=== PATIENT | male | born 1995 | race Caucasian/White ===

== ENCOUNTER 2022-09-07 22:38 | Emergency (ER) | payer OTHER ==
--- OUTSIDE RECORDS SUMMARY | 2022-09-07 22:44 | XMS REPORT | Continuity of Care Document ---
:1995 Author Organization [facility] t Address [facility] [place] [address] Care Team Providers Name Role Phone LORRAINE BHAKTA Primary Care Physician Unavailable Pob, Ad[facility] Lab Main Attending Clinician Unavailable Brad Oh MD Attending Clinician BRAD OH Attending Clinician Unavailable LEATHA PRUITT Attending Clinician Unavailable Leatha Pruitt MD Attending Clinician LEATHA PRUITT Admitting Clinician Unavailable Payers Payer Name Policy Type Policy Number Effective Date Expiration Date S ource Problems Condition Condition Condition Status Onset Resolution Last Treating Co mments Source Name Details Category Date Date Treatment Clinician Date 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 5-16 ity of 00:00: [place] 00 Medical Branch Failure to Failure to Disease Active U nivers gain gain 5-16 ity of weight weight 00:00: [place] (0-17) (0-17) 00 Medical Branch Allergies, Adverse Reactions, Alerts Allergy Allergy Status Severity Reaction(s) Onset Inactive Treating Comm ents Source Name Type Date Date Clinician NO KNOWN Drug Active Univers ALLERGIE Class ity of [facility] Social History Social Habit Start Date Stop Date Quantity Comments Source Exposure to 2022-08-10 2022-08-20 Not sure [facility]-CoV-2 00:00:00 05:13:00 [place] [facility] (event) [place] Alcohol intake 2022-08-20 2022-08-20 Current University of 00:00:00 00:00:00 non-drinker of [facility] alcohol (finding) [place] Tobacco use and 2012-02-29 2012-02-29 Smokeless tobacco Un iversity of exposure 00:00:00 00:00:00 non-user [facility] Sex Assigned At [birth year] Universit y of 00:00:00 00:00:00 [facility] Smoking Status Start Date Stop Date Source Never smoked tobacco [facility] Medications Ordered Filled Start Stop Current Ordering Indication Dosage Frequency Signature Comments Components Source Medication Medication Date Date Medication? Clinician (SIG) Name Name metoclopram 2021-10 No 10mg 10 mg, Uni vers fernando HCl 10-20 Slow IV ity of (REGLAN) 13:00: 12:50 Push, [place] injection 00 :00 ONCE, 1 Medical 10 mg dose, On Branch 08/20/22 at 0800, GIL NaCl 0.9% 2021-10 No 1000mL at 999 Uni vers (NS) IV 10-20 mL/hr, ity of infusion 13:00: 13:25 [place] 1,000 mL 00 :00 s, ONCE, 1 Medic al dose, On Branch 08/20/22 at 0800, Routine ondansetron 2021-10 No 4mg 4 mg, Slow Univers (ZOFRAN 10-20 IV Push, ity of (PF)) 12:15: 12:16 ONCE, 1 [place] injection 4 00 :00 dose, On [facility] mg Sat Branch 08/20/22 at 0715, GIL FENTanyl PF 2021-10 No 25ug 25 mcg, Un john (SUBLIMAZE 10-20 Slow IV ity o f (PF)) 12:15: 12:16 Push, [place] injection 00 :00 ONCE, 1 Medical 25 mcg dose, On Branch 08/20/22 at 0715, STAT iopamidol 2021-10- No [id number] 100mL 100 mL, Univers (ISOVUE 10-20 Intravenou ity o f 370-500 mL) 12:15: 11:26 s, ONCE, 1 [place] injection 00 :00 dose, On Medica l 100 mL Sat Branch 08/20/22 at 0715, Routine ondansetron 2021-10 4mg 4 mg, Slow Univers (ZOFRAN 10-20 IV Push, ity of (PF)) 10:30: 10:22 ONCE, 1 [place] injection 4 00 :00 dose, On Medi radha mg Sat Branch 08/20/22 at 0530, GIL NaCl 0.9% 2021-10 1000mL at 999 Uni vers (NS) bolus 10-20 mL/hr, ity of infusion 10:30: 11:47 1,000 mL, [place] 1,000 mL 00 :00 IV Medical Infusion, Branch ONCE, 1 dose, On 08/20/22 at 0530, STAT dexmethylph 2021-10 No 10mg Take 10 mg Univers enidate 10-20 by mouth 2 ity o f (FOCALIN) 05:13: 00:00 (two) [place] 10 mg 01 :00 times Medical tablet daily. 15 Branch mg in AM 10 mg at noom dicyclomine 2021-10 Yes [id number] 20mg Take 1 Univers 20 mg 1-05 tablet by ity of tablet 00:00: mouth [place] 00 every 6 Medical (six) Branch hours as needed for Abdominal pain. ondansetron 2021-10 Yes [id number] 4mg Take 1 Univers (ZOFRAN) 4 1-05 tablet by ity of mg tablet 00:00: mouth [place] 00 every 8 Medical (eight) Branch hours as needed for Nausea and Vomiting (N/V). dicyclomine 2021-10 Yes [id number] 20mg Take 1 Univers 20 mg 1-05 tablet by ity of tablet 00:00: mouth [place] 00 every 6 Medical (six) Branch hours as needed for Abdominal pain. ondansetron 2021-10 Yes [id number] 4mg Take 1 Univers (ZOFRAN) 4 1-05 tablet by ity of mg tablet 00:00: mouth [place] 00 every 8 Medical (eight) Branch hours as needed for Nausea and Vomiting (N/V). Dose No Unknown 06-21 00:00: 00 Dose 0 No Unknown 06-21 00:00: 00 Dose 2-0 No Unknown 06-21 00:00: 00 fluticasone 2-0 No 2mcg/ac propionate 05-16 tuation 50 00:00: mcg/actuati 00 on nasal spray,suspe nsion Dose 2021-0 No 250 Unknown 05-16 00:00: 00 fluticasone 2-0 No 2mcg/ac propionate 05-16 tuation 50 00:00: mcg/actuati 00 on nasal spray,suspe nsion Dose 2021-0 No 250 Unknown 05-16 00:00: 00 fluticasone 2-0 No 2mcg/ac propionate 05-16 tuation 50 00:00: mcg/actuati 00 on nasal spray,suspe nsion Dose 2021-0 No 250 Unknown 05-16 00:00: 00 INHALE 2 2022-0 No PUFFS INTO 7-28 THE LUNGS 00:00: EVERY 6 00 HOURS NEEDED Dose 2022-0 No 250 Unknown 7 00:00: 00 INHALE 2 2022-0 No PUFFS INTO 7-28 THE LUNGS 00:00: EVERY 6 00 HOURS NEEDED Dose 2022-0 No 250 Unknown 7 00:00: 00 INHALE 2 2022-0 No PUFFS INTO 7-28 THE LUNGS 00:00: EVERY 6 00 HOURS NEEDED Dose 2022-0 No 250 Unknown 7 00:00: 00 &lt 2022-0 No 250 7-27 00:00: 00 &lt 2022-0 No 7-27 00:00: 00 INHALE 2 2022-0 No PUFFS INTO 7-27 THE LUNGS 00:00: EVERY 6 00 HOURS NEEDED &lt 2022-0 No 7-27 00:00: 00 Dose 2022-0 No 250 Unknown 7- 00:00: 00 Dose 2022-0 No Unknown 7-27 00:00: 00 &lt 2022-0 No 250 7-27 00:00: 00 &lt 2022-0 No 7-27 00:00: 00 INHALE 2 2022-0 No PUFFS INTO 7-27 THE LUNGS 00:00: EVERY 6 00 HOURS NEEDED &lt 2022-0 No 7-27 00:00: 00 Dose 2022-0 No 250 Unknown 7- 00:00: 00 Dose 2022-0 No Unknown 05-11 00:00: 00 &lt 2-0 No 250 7 00:00: 00 &lt 2-0 No 7 00:00: 00 INHALE 2 2021-0 No PUFFS INTO 7- THE LUNGS 00:00: EVERY 6 00 HOURS NEEDED &lt 2022-0 No 7 00:00: 00 Dose 2-0 No 250 Unknown 05-11 00:00: 00 Dose 2-0 No Unknown 05-11 00:00: 00 &lt 2022-0 No 250 05-11 00:00: 00 &lt 2-0 No 7 00:00: 00 INHALE 2 2021-0 No PUFFS INTO 7- THE LUNGS 00:00: EVERY 6 00 HOURS NEEDED &lt 2-0 No 7 00:00: 00 Dose 2-0 No 250 Unknown 05-11 00:00: 00 Dose 2021-0 No Unknown 05-11 00:00: 00 Flonase 2021-0 No 1mcg/ac Allergy 7 tuation Relief 50 00:00: mcg/actuati 00 on nasal spray,suspe nsion Dose 2021-0 No Unknown 05-06 00:00: 00 &lt 2-0 No 7 00:00: 00 Dose 2021-0 No 250 Unknown 05-06 00:00: 00 Flonase 2021-0 No 1mcg/ac Allergy 05-06 tuation Relief 50 00:00: mcg/actuati 00 on nasal spray,suspe nsion Dose 2021-0 No Unknown 05-06 00:00: 00 &lt 2-0 No 7 00:00: 00 Dose 2-0 No 250 Unknown 05-06 00:00: 00 Flonase 2021-0 No 1mcg/ac Allergy 7- tuation Relief 50 00:00: mcg/actuati 00 on nasal spray,suspe nsion Dose 2021-0 No Unknown 05-06 00:00: 00 &lt 2-0 No 7- 00:00: 00 Dose 2-0 No 250 Unknown 05-06 00:00: 00 Flonase 2021-0 No 1mcg/ac Allergy 7- tuation Relief 50 00:00: mcg/actuati 00 on nasal spray,suspe nsion Dose 2021-0 No Unknown 05-06 00:00: 00 &lt 2022-0 No 05-06 00:00: 00 Dose 2-0 No 250 Unknown 05-06 00:00: 00 Flonase 2-0 No 1mcg/ac Allergy 05-06 tuation Relief 50 00:00: mcg/actuati 00 on nasal spray,suspe nsion Dose 2021-0 No Unknown 05-06 00:00: 00 &lt 2022-0 No 05-06 00:00: 00 Dose 2022-0 No 250 Unknown 05-06 00:00: 00 INHALE 2 2-0 No PUFFS INTO 7-07 THE LUNGS 00:00: EVERY 6 00 HOURS NEEDED INHALE 2 2021-0 No PUFFS INTO 7-07 THE LUNGS 00:00: EVERY 6 00 HOURS NEEDED INHALE 2 2-0 No PUFFS INTO 7-07 THE LUNGS 00:00: EVERY 6 00 HOURS NEEDED INHALE 2 2021-0 No PUFFS INTO 7-07 THE LUNGS 00:00: EVERY 6 00 HOURS NEEDED INHALE 2 2021-0 No PUFFS INTO 7-07 THE LUNGS 00:00: EVERY 6 00 HOURS NEEDED INHALE 2 2021-0 No PUFFS INTO 7-07 THE LUNGS 00:00: EVERY 6 00 HOURS NEEDED &lt 2022-0 No 04-20 00:00: 00 &lt 2022-0 No 250 04-20 00:00: 00 TAKE 2 2-0 No 250 TABLETS BY 7- MOUTH 00:00: TAKE 1 TABLET DAILY FOR 4 DAYS &lt 2022-0 No 7- 00:00: 00 &lt 2022-0 No 250 - 00:00: 00 &lt 2022-0 No 7- 00:00: 00 &lt 2022-0 No 250 04-20 00:00: 00 TAKE 2 2-0 No 250 TABLETS BY - MOUTH 00:00: TAKE 1 TABLET DAILY FOR 4 DAYS TAKE 2 2022-0 No 250 TABLETS BY 7- MOUTH 00:00: TAKE 1 TABLET DAILY FOR 4 DAYS &lt 2022-0 No 7- 00:00: 00 &lt 2022-0 No 250 7-06 00:00: 00 TAKE 2 2022-0 No 250 TABLETS BY 7-06 MOUTH 00:00: TAKE 1 TABLET DAILY FOR 4 DAYS &lt 2022-0 No 7-06 00:00: 00 &lt 2022-0 No 250 7-06 00:00: 00 TAKE 2 2022-0 No 250 TABLETS BY 7-06 MOUTH 00:00: TAKE 1 TABLET DAILY FOR 4 DAYS &lt 2022-0 No 7-06 00:00: 00 &lt 2022-0 No 250 7-06 00:00: 00 TAKE 2 2022-0 No 250 TABLETS BY 7-06 MOUTH 00:00: TAKE 1 TABLET DAILY FOR 4 DAYS &lt 2022-0 No 7-05 00:00: 00 &lt 2022-0 No 7-05 00:00: 00 &lt 2022-0 No 7-05 00:00: 00 &lt 2022-0 No 7-05 00:00: 00 &lt 2022-0 No 7-05 00:00: 00 &lt 2022-0 No 7-05 00:00: 00 Dose 2022-0 No Unknown 6-27 00:00: 00 Dose 2022-0 No Unknown 6-27 00:00: 00 Dose 2022-0 No Unknown 6-27 00:00: 00 Dose 2022-0 No Unknown 6-27 00:00: 00 Dose 2022-0 No Unknown 6-27 00:00: 00 Dose 2022-0 No Unknown 6-27 00:00: 00 Dose 2022-0 No Unknown 6-27 00:00: 00 Dose 2022-0 No Unknown 6-27 00:00: 00 Dose 2022-0 No Unknown 6-27 00:00: 00 Dose 2022-0 No Unknown 6-27 00:00: 00 Dose 2022-0 No Unknown 6-27 00:00: 00 Dose 2022-0 No Unknown 6-27 00:00: 00 azithromyci 2022-0 No 1mg n 250 mg 2-10 tablet 00:00: 00 azithromyci 2022-0 No 1mg n 250 mg 2-10 tablet 00:00: 00 azithromyci 2022-0 No 1mg n 250 mg 2-10 tablet 00:00: 00 azithromyci 2022-0 No 1mg n 250 mg 2-10 tablet 00:00: 00 azithromyci 2-0 No 1mg n 250 mg 2-10 tablet 00:00: 00 azithromyci 2-0 No 1mg n 250 mg 2-10 tablet 00:00: 00 Flonase 2-0 No 1mcg/ac Allergy 2-09 tuation Relief 50 00:00: mcg/actuati 00 on nasal spray,suspe nsion Flonase 2-0 No 1mcg/ac Allergy 2-09 tuation Relief 50 00:00: mcg/actuati 00 on nasal spray,suspe nsion cetirizine 2-0 No 1mg 10 mg 2-09 capsule 00:00: 00 cetirizine 2-0 No 1mg 10 mg 2-09 capsule 00:00: 00 Flonase 2-0 No 1mcg/ac Allergy 2-09 tuation Relief 50 00:00: mcg/actuati 00 on nasal spray,suspe nsion cetirizine 2-0 No 1mg 10 mg 2-09 capsule 00:00: 00 Flonase 2-0 No 1mcg/ac Allergy 2-09 tuation Relief 50 00:00: mcg/actuati 00 on nasal spray,suspe nsion cetirizine 2-0 No 1mg 10 mg 2-09 capsule 00:00: 00 Flonase 2-0 No 1mcg/ac Allergy 2-09 tuation Relief 50 00:00: mcg/actuati 00 on nasal spray,suspe nsion cetirizine 2-0 No 1mg 10 mg 2-09 capsule 00:00: 00 Flonase 2-0 No 1mcg/ac Allergy 2-09 tuation Relief 50 00:00: mcg/actuati 00 on nasal spray,suspe nsion cetirizine 2-0 No 1mg 10 mg 2-09 capsule 00:00: 00 ProAir HFA 1-1 No 2mcg/ac 90 2-14 tuation mcg/actuati 00:00: on aerosol 00 inhaler ProAir HFA 2020-1 No 2mcg/ac 90 2-14 tuation mcg/actuati 00:00: on aerosol 00 inhaler ProAir HFA 2020-10 No 2mcg/ac 90 2-14 tuation mcg/actuati 00:00: on aerosol 00 inhaler ProAir HFA 2020- No 2mcg/ac 90 2-14 tuation mcg/actuati 00:00: on aerosol 00 inhaler ProAir HFA 2020- No 2mcg/ac 90 2-14 tuation mcg/actuati 00:00: on aerosol 00 inhaler ProAir HFA 2020- No 2mcg/ac 90 2-14 tuation mcg/actuati 00:00: on aerosol 00 inhaler azithromyci 2020-10 No 1mg n 250 mg 0-23 tablet 00:00: 00 azithromyci 2020- No 1mg n 250 mg 0-23 tablet 00:00: 00 azithromyci 2020- No 1mg n 250 mg 0-23 tablet 00:00: 00 azithromyci 2020- No 1mg n 250 mg 0-23 tablet 00:00: 00 azithromyci 2020- No 1mg n 250 mg 0-23 tablet 00:00: 00 azithromyci 2020- No 1mg n 250 mg 0-23 tablet 00:00: 00 Zofran 4 mg 2020- No 1mg tablet 0-22 00:00: 00 Bromfed DM 2020- No 75mg/5 2 mg-30 0-22 mL mg-10 mg/5 00:00: mL oral 00 syrup Zofran 4 mg 2020- No 1mg tablet 0-22 00:00: 00 Bromfed DM 2020-1 No 75mg/5 2 mg-30 0-22 mL mg-10 mg/5 00:00: mL oral 00 syrup Zofran 4 mg 2020- No 1mg tablet 0-22 00:00: 00 Bromfed DM 2020-1 No 75mg/5 2 mg-30 0-22 mL mg-10 mg/5 00:00: mL oral 00 syrup Zofran 4 mg 2020- No 1mg tablet 0-22 00:00: 00 Bromfed DM 2020-1 No 75mg/5 2 mg-30 0-22 mL mg-10 mg/5 00:00: mL oral 00 syrup Zofran 4 mg 2020- No 1mg tablet 022 00:00: 00 Bromfed DM 2020- No 75mg/5 2 mg-30 0-22 mL mg-10 mg/5 00:00: mL oral 00 syrup Zofran 4 mg 2020-10 No 1mg tablet 0-22 00:00: 00 Bromfed DM 2020-10 No 75mg/5 2 mg-30 0-22 mL mg-10 mg/5 00:00: mL oral 00 syrup fluticasone 2020-0 No 2mcg/ac propionate 8 tuation 50 00:00: mcg/actuati 00 on nasal spray,suspe nsion Zithromax 2020-0 No 1mg 250 mg 8-06 tablet 00:00: 00 fluticasone 1-0 No 2mcg/ac propionate 05-21 tuation 50 00:00: mcg/actuati 00 on nasal spray,suspe nsion Zithromax 2020-0 No 1mg 250 mg 8-06 tablet 00:00: 00 fluticasone 1-0 No 2mcg/ac propionate 05-21 tuation 50 00:00: mcg/actuati 00 on nasal spray,suspe nsion Zithromax 2020-0 No 1mg 250 mg 8-06 tablet 00:00: 00 fluticasone 1-0 No 2mcg/ac propionate 05-21 tuation 50 00:00: mcg/actuati 00 on nasal spray,suspe nsion Zithromax 2020-0 No 1mg 250 mg 8-06 tablet 00:00: 00 fluticasone 1-0 No 2mcg/ac propionate 05-21 tuation 50 00:00: mcg/actuati 00 on nasal spray,suspe nsion Zithromax 2020-0 No 1mg 250 mg 8-06 tablet 00:00: 00 fluticasone 1-0 No 2mcg/ac propionate 05-21 tuation 50 00:00: mcg/actuati 00 on nasal spray,suspe nsion Zithromax 1-0 No 1mg 250 mg 8-06 tablet 00:00: 00 fluticasone 1-0 No 2mcg/ac propionate 6 tuation 50 00:00: mcg/actuati 00 on nasal spray,suspe nsion fluticasone 2020-0 No 2mcg/ac propionate 6-24 tuation 50 00:00: mcg/actuati 00 on nasal spray,suspe nsion fluticasone 2020-0 No 2mcg/ac propionate 6-24 tuation 50 00:00: mcg/actuati 00 on nasal spray,suspe nsion fluticasone 2020-0 No 2mcg/ac propionate 6-24 tuation 50 00:00: mcg/actuati 00 on nasal spray,suspe nsion fluticasone 2020-0 No 2mcg/ac propionate 6-24 tuation 50 00:00: mcg/actuati 00 on nasal spray,suspe nsion fluticasone 2020-0 No 2mcg/ac propionate 6-24 tuation 50 00:00: mcg/actuati 00 on nasal spray,suspe nsion fluticasone 2019-0 No 2mcg/ac propionate 7-20 tuation 50 00:00: mcg/actuati 00 on nasal spray,suspe nsion fluticasone 2019-0 No 2mcg/ac propionate 7-20 tuation 50 00:00: mcg/actuati 00 on nasal spray,suspe nsion fluticasone 2020-0 No 2mcg/ac propionate 7-20 tuation 50 00:00: mcg/actuati 00 on nasal spray,suspe nsion fluticasone 2020-0 No 2mcg/ac propionate 7-20 tuation 50 00:00: mcg/actuati 00 on nasal spray,suspe nsion fluticasone 2020-0 No 2mcg/ac propionate 7-20 tuation 50 00:00: mcg/actuati 00 on nasal spray,suspe nsion fluticasone 2020-0 No 2mcg/ac propionate 7-20 tuation 50 00:00: mcg/actuati 00 on nasal spray,suspe nsion fluticasone 2020-0 No 2mcg/ac propionate 7-20 tuation 50 00:00: mcg/actuati 00 on nasal spray,suspe nsion fluticasone 2020-0 No 2mcg/ac propionate 7-20 tuation 50 00:00: mcg/actuati 00 on nasal spray,suspe nsion fluticasone 2020-0 No 2mcg/ac propionate 7-20 tuation 50 00:00: mcg/actuati 00 on nasal spray,suspe nsion fluticasone 2020-0 No 2mcg/ac propionate 7-20 tuation 50 00:00: mcg/actuati 00 on nasal spray,suspe nsion fluticasone 2020-0 No 2mcg/ac propionate 7-20 tuation 50 00:00: mcg/actuati 00 on nasal spray,suspe nsion fluticasone 2020-0 No 2mcg/ac propionate 7-20 tuation 50 00:00: mcg/actuati 00 on nasal spray,suspe nsion Immunizations Ordered Immunization Filled Immunization Date Status Commen ts Source Name Name HPV, unspecified 2020-04-05 Completed formula 00:00:00 HPV, unspecified 2020-04-05 Completed formula 00:00:00 HPV, unspecified 2020-04-05 Completed formula 00:00:00 HPV, unspecified 2020-04-05 Completed formula 00:00:00 HPV, unspecified 2020-04-05 Completed formula 00:00:00 HPV, unspecified 2020-04-05 Completed formula 00:00:00 HPV, unspecified 2019-08-16 Completed formula 00:00:00 HPV, unspecified 2019-08-16 Completed formula 00:00:00 HPV, unspecified 2019-08-16 Completed formula 00:00:00 HPV, unspecified 2019-08-16 Completed formula 00:00:00 HPV, unspecified 2019-08-16 Completed formula 00:00:00 HPV, unspecified 2019-08-16 Completed formula 00:00:00 HPV, unspecified 2019-06-17 Completed formula 00:00:00 HPV, unspecified 2019-06-17 Completed formula 00:00:00 HPV, unspecified 2019-06-17 Completed formula 00:00:00 HPV, unspecified 2019-06-17 Completed formula 00:00:00 HPV, unspecified 2019-06-17 Completed formula 00:00:00 HPV, unspecified 2019-06-17 Completed formula 00:00:00 Vital Signs Vital Name Observation Time Observation Value Comments Source Systolic blood 2022-08-20 13:00:00 122 mm[Hg] [facility] Diastolic blood 2022-08-20 13:00:00 88 mm[Hg] Unive rsity of pressure [facility] Heart rate 2022-08-20 13:00:00 120 /min Universi ty of [facility] Respiratory rate 2022-08-20 13:00:00 16 /min Univ ersity of [facility] Oxygen saturation in 2022-08-20 13:00:00 100 /min [facility] Arterial blood by [facility] Pulse oximetry Branch Body height 2022-08-20 10:18:00 165.1 cm [facility] acute hospital Body weight 2022-08-20 10:18:00 61.689 kg [facility] acute hospital BMI 2022-08-20 10:18:00 22.63 kg/m2 [facility] acute hospital BP Systolic 2022-09-06 15:19:00 122 mm[Hg] BP Diastolic 2022-09-06 15:19:00 73 mm[Hg] Weight Measured 2022-09-06 15:19:00 139.80 pounds Height Measured 2022-09-06 15:19:00 64.20 inches Body Temperature 2022-09-06 15:19:00 98.20 degrees Heart Rate 2022-09-06 15:19:00 75.00 /min Respiratory Rate 2022-09-06 15:19:00 BP Systolic 2022-08-22 14:15:00 114 mm[Hg] BP Diastolic 2022-08-22 14:15:00 73 mm[Hg] Weight Measured 2022-08-22 14:15:00 143.20 pounds Height Measured 2022-08-22 14:15:00 64.20 inches Body Temperature 2022-08-22 14:15:00 98.40 degrees Heart Rate 2022-08-22 14:15:00 81.00 /min Respiratory Rate 2022-08-22 14:15:00 BP Systolic 2022-05-11 13:23:00 132 mm[Hg] BP Diastolic 2022-05-11 13:23:00 77 mm[Hg] Weight Measured 2022-05-11 13:23:00 150.20 pounds Height Measured 2022-05-11 13:23:00 64.20 inches Body Temperature 2022-05-11 13:23:00 98.20 degrees Heart Rate 2022-05-11 13:23:00 76.00 /min Respiratory Rate 2022-05-11 13:23:00 BP Systolic 2021-08-06 08:06:00 BP Diastolic 2021-08-06 08:06:00 Weight Measured 2021-08-06 08:06:00 155.00 pounds Height Measured 2021-08-06 08:06:00 64.20 inches Body Temperature 2021-08-06 08:06:00 Heart Rate 2021-08-06 08:06:00 Respiratory Rate 2021-08-06 08:06:00 BP Systolic 2021-04-07 07:58:00 141 mm[Hg] BP Diastolic 2021-04-07 07:58:00 84 mm[Hg] Weight Measured 2021-04-07 07:58:00 153.40 pounds Height Measured 2021-04-07 07:58:00 64.20 inches Body Temperature 2021-04-07 07:58:00 97.90 degrees Heart Rate 2021-04-07 07:58:00 81.00 /min Respiratory Rate 2021-04-07 07:58:00 BP Systolic 2020-03-16 08:38:00 113 mm[Hg] BP Diastolic 2020-03-16 08:38:00 65 mm[Hg] Weight Measured 2020-03-16 08:38:00 141.50 pounds Height Measured 2020-03-16 08:38:00 64.00 inches Body Temperature 2020-03-16 08:38:00 98.70 degrees Heart Rate 2020-03-16 08:38:00 92.00 /min Respiratory Rate 2020-03-16 08:38:00 Procedures Procedure Date / Time Performed Performing Clinician [facility] e CT ABDOMEN PELVIS W 2022-08-20 11:28:38 Leatha Pruitt [facility] CONTRAST Medical Branch LIPASE 2022-08-20 10:22:00 Leatha Pruitt [facility] COMP. METABOLIC PANEL 2022-08-20 10:22:00 Leatha Pruitt [facility] ([id number]) Medical Branch CBC WITH DIFF 2022-08-20 10:22:00 Leatha Pruitt [facility] URINALYSIS 2022-08-20 10:22:00 Leatha Pruitt [facility] NOTICE OF PRIVACY 2022-08-20 10:06:07 Doctor Unassigned, No [facility] [place] PRACTICES Name [facility] Branch CONSENT/REFUSAL FOR 2022-08-20 10:05:37 Doctor Unassigned, No [facility] [place] DIAGNOSIS AND Name Medical [place] TREATMENT Plan of Care Planned Activity Planned Date Details Comments Source Goal Plan of Care Note [code = 50017-8] Goal Plan of Care Note [code = 96761-1] Goal Plan of Care Note [code = 04361-9] Goal Plan of Care Note [code = 09126-9] Goal Plan of Care Note [code = 41250-5] Goal Plan of Care Note [code = 40902-9] Goal Plan of Care Note [code = 93145-9] Goal Plan of Care Note [code = 24463-8] Goal Plan of Care Note [code = 42617-8] Goal Plan of Care Note [code = 62323-6] Goal Plan of Care Note [code = 27942-4] Goal Plan of Care Note [code = 96497-4] Goal Plan of Care Note [code = 33867-0] Goal Plan of Care Note [code = 64409-4] Goal Plan of Care Note [code = 92652-6] Goal Plan of Care Note [code = 72793-6] Goal Plan of Care Note [code = 67074-4] Goal Plan of Care Note [code = 99406-0] Goal Plan of Care Note [code = 84210-6] Goal Plan of Care Note [code = 88527-1] Goal Plan of Care Note [code = 12446-4] Goal Plan of Care Note [code = 20306-8] Goal Plan of Care Note [code = 21825-1] Goal Plan of Care Note [code = 54558-7] Goal Plan of Care Note [code = 58143-1] Goal Plan of Care Note [code = 95748-2] Goal Plan of Care Note [code = 24149-5] Goal Plan of Care Note [code = 80381-1] Goal Plan of Care Note [code = 30924-0] Goal Plan of Care Note [code = 92808-8] Goal Plan of Care Note [code = 99568-5] Goal Plan of Care Note [code = 64079-6] Goal Plan of Care Note [code = 11035-8] Goal Plan of Care Note [code = 86552-8] Goal Plan of Care Note [code = 33821-4] Goal Plan of Care Note [code = 47252-2] Goal Plan of Care Note [code = 01929-8] Goal Plan of Care Note [code = 80078-9] Goal Plan of Care Note [code = 97358-8] Goal Plan of Care Note [code = 29094-6] Goal Plan of Care Note [code = 92893-7] Goal Plan of Care Note [code = 67781-8] Goal Plan of Care Note [code = 37729-7] Goal Plan of Care Note [code = 93817-8] Goal Plan of Care Note [code = 68875-6] Goal Plan of Care Note [code = 11506-5] Goal Plan of Care Note [code = 90373-3] Goal Plan of Care Note [code = 76106-7] Goal Plan of Care Note [code = 24582-4] Goal Plan of Care Note [code = 23874-8] Goal Plan of Care Note [code = 52687-6] Goal Plan of Care Note [code = 38782-3] Goal Plan of Care Note [code = 53856-3] Goal Plan of Care Note [code = 99763-2] Goal Plan of Care Note [code = 71549-7] Goal Plan of Care Note [code = 31903-1] Goal Plan of Care Note [code = 76935-4] Goal Plan of Care Note [code = 36820-5] Goal Plan of Care Note [code = 18347-6] Goal Plan of Care Note [code = 04897-3] Goal Plan of Care Note [code = 19742-1] Goal Plan of Care Note [code = 32569-3] Goal Plan of Care Note [code = 89400-3] Goal Plan of Care Note [code = 91590-6] Goal Plan of Care Note [code = 22040-9] Goal Plan of Care Note [code = 41899-0] Goal Plan of Care Note [code = 94791-5] Goal Plan of Care Note [code = 08117-4] Goal Plan of Care Note [code = 40005-2] Goal Plan of Care Note [code = 81320-1] Goal Plan of Care Note [code = 07867-6] Goal Plan of Care Note [code = 30495-2] Goal Plan of Care Note [code = 91105-1] Goal Plan of Care Note [code = 88130-7] Goal Plan of Care Note [code = 82766-0] Goal Plan of Care Note [code = 93426-3] Goal Plan of Care Note [code = 37758-1] Goal Plan of Care Note [code = 62612-6] Goal Plan of Care Note [code = 25074-0] Goal Plan of Care Note [code = 76213-4] Goal Plan of Care Note [code = 11310-6] Goal Plan of Care Note [code = 40610-6] Goal Plan of Care Note [code = 04581-0] Goal Plan of Care Note [code = 34338-8] Goal Plan of Care Note [code = 86704-3] Goal Plan of Care Note [code = 94751-2] Goal Plan of Care Note [code = 69433-9] Goal Plan of Care Note [code = 20163-1] Goal Plan of Care Note [code = 65805-3] Goal Plan of Care Note [code = 36335-6] Goal Plan of Care Note [code = 16668-6] Goal Plan of Care Note [code = 37325-1] Goal Plan of Care Note [code = 74223-6] Goal Plan of Care Note [code = 44930-2] Goal Plan of Care Note [code = 84619-7] Goal Plan of Care Note [code = 64609-4] Goal Plan of Care Note [code = 71886-9] Goal Plan of Care Note [code = 69823-0] Goal Plan of Care Note [code = 67116-8] Goal Plan of Care Note [code = 46646-8] Goal Plan of Care Note [code = 80454-0] Goal Plan of Care Note [code = 36043-0] Goal Plan of Care Note [code = 04147-8] Goal Plan of Care Note [code = 66197-1] Goal Plan of Care Note [code = 25977-3] Goal Plan of Care Note [code = 61549-0] Goal Plan of Care Note [code = 42561-6] Goal Plan of Care Note [code = 14995-5] Goal Plan of Care Note [code = 47658-3] Goal Plan of Care Note [code = 92304-8] Goal Plan of Care Note [code = 60561-7] Goal Plan of Care Note [code = 10007-5] Goal Plan of Care Note [code = 72236-3] Goal Plan of Care Note [code = 34380-6] Goal Plan of Care Note [code = 47993-0] Goal Plan of Care Note [code = 52305-2] Goal Plan of Care Note [code = 02674-0] Goal Plan of Care Note [code = 38002-5] Goal Plan of Care Note [code = 04105-7] Goal Plan of Care Note [code = 76240-6] Goal Plan of Care Note [code = 03596-0] Encounters Start End Encounter Admission Attending Care Care Encounter Source Date/Time Date/Time Type Type Clinicians Facility Department ID 2022-09-06 2022-09-06 Outpatient [id number] 00:00:00 00:00:00 Visit [id number] 751-4634-b -p4pl-878 [id number] q7j771 2022-09-01 2022-09-01 Outpatient [id number] [id number] 00:00:00 00:00:00 Visit 09k7-9j8j 1u0-1o5m-8 -975f-204 [id number] 2022-08-22 2022-08-22 Outpatient [facility] SFA [id number] 022 Ck 14:14:51 14:14:51 1107 F Matthew 2022-08-22 2022-08-22 Channel Marketing Manager Aydee, Noah Lab Main [facility] 1.2.8 [id number] Univers 10:00:00 10:15:00 Visit Brad Oh 350.1.13.10 tanya [facility] 4.2.7.2.686 Ramona COREA [phone] [address] 2022-08-22 2022-08-22 Outpatient Sal[place] [facility] [id number] Univers 10:00:00 10:00:00 BRAD martínez [facility] 2022-08-22 2022-08-22 Outpatient [id number] 00:00:00 00:00:00 Visit so3z-9c91 h6o-8h54-6 -8002-1a4 [id number] [id number] cd56a3 2022-08-20 2022-08-20 Emergency X [facility] ERT [id number] Univers 05:12:00 08:31:00 LEATHA ity [facility] 2022-08-20 2022-08-20 Emergency [facility] [id number] Univers 05:12:00 08:31:[facility]7.2.686 [facility] [phone] [address] 2022-05-11 2022-05-11 Outpatient [id number] 00:00:00 00:00:00 Visit sj1y-7565 r2b-9098-p -t79m-jd5 54f-nc534h [id number] d6ca80 2022-05-06 2022-05-06 Outpatient [id number]- [id number] nqol3g-2 00:00:00 00:00:00 Visit 52ce-47f8 2ce-47f8-9 -2t09-8mz a91-3sf807 654dg8401 ol0859 2022-04-20 2022-04-20 Outpatient [id number]- [id number] [id number] 00:00:00 00:00:00 Visit 51cb-412f 1cb-412f-b -xy72-v44 j40-j6110r 14ncn905k dd724h Results Test Description Test Time Test Comments Results Result Comments Source CBC with Differential 2022-08-20 10:58:35 Test Item Value Reference Range Interpretation Comme nts WBC (test code = 6690-2) See_Comment H [A utomated message] The system which ge nerated this result transmit ana reference range: 4.20 - 1 0.70 10*3/?L. The reference r urbano was not used to interpr et this result as normal/abnor mal. RBC (test code = 789-8) See_Comment H [Au tomated message] The system which [employer] nerated this result transmit ana reference range: 4.26 - 5 .52 10*6/?L. The reference r urbano was not used to interpr et this result as normal/abnor mal. HGB (test code = 718-7) 17.8 g/dL 12.2-16.4 H HCT (test code = 4544-3) 49.5 % 38.4-49.3 H MCV (test code = 787-2) 83.6 fL 81.7-95.6 MCH (test code = 785-6) 30.1 pg 26.1-32.7 MCHC (test code = 786-4) 36.0 g/dL 31.2-35.0 H RDW-SD (test code = 66140-6) 36.5 fL 38.5-51.6 L RDW-CV (test code = 788-0) 12.0 % 12.1-15.4 L PLT (test code = 777-3) See_Comment [Au tomated message] The system which [employer] nerated this result transmit ana reference range: 150 - 32 8 10*3/?L. The reference range was not used to interpret th is result as normal/abnormal . MPV (test code = 38631-6) 9.9 fL 9.8-13.0 NRBC/100 WBC (test code = See_Comment [ Automated message] The [id number]) system which [employer] nerated this result transmit ana reference range: 0.0 - 10 .0 /100 WBCs. The reference r urbano was not used to interpr et this result as normal/abnor mal. NRBC x10^3 (test code = See_Comment [Au tomated message] The [id number]) system which [employer] nerated this result transmit ana reference range: 10*3/?L. The reference range was not u sed to interpret this result as normal/abnormal . GRAN MAT (NEUT) % (test code 86.5 % = 770-8) IMM GRAN % (test code = 0.30 % 1347002064) LYMPH % (test code = 736-9) 4.4 % MONO % (test code = 5905-5) 8.3 % EOS % (test code = 713-8) 0.2 % BASO % (test code = 706-2) 0.3 % GRAN MAT x10^3(ANC) (test 13.90 10*3/uL 1.99-6.95 H code = 9213266762) IMM GRAN x10^3 (test code = 0.05 10*3/uL 0.00-0.06 3057957832) LYMPH x10^3 (test code = 0.71 10*3/uL 1.09-3.23 L 731-0) MONO x10^3 (test code = 1.34 10*3/uL 0.36-1.02 H 742-7) EOS x10^3 (test code = 0.04 10*3/uL 0.06-0.53 L 711-2) BASO x10^3 (test code = 0.05 10*3/uL 0.01-0.09 704-7) Lab Interpretation (test Abnormal code = 99433-8) [facility] [id number] 10:46:23 Test Item Value Reference Range Interpretation Comments NA (test code = 142 mmol/L 135-145 3869243999) K (test code = 3.7 mmol/L 3.5-5.0 9253530702) CL (test code = 103 mmol/L 98-108 2130724059) CO2 TOTAL (test code = 25 mmol/L 23-31 2839067701) AGAP (test code = 2-16 2532976985) BUN (test code = 20 mg/dL 7-23 3036488484) GLUCOSE (test code = 165 mg/dL 70-110 H 1439886684) CREATININE (test code = 0.87 mg/dL 0.60-1.25 7223756524) TOTAL BILI (test code = 1.7 mg/dL 0.1-1.1 H 6363697187) CALCIUM (test code = 9.5 mg/dL 8.6-10.6 0662715845) T PROTEIN (test code = 7.6 g/dL 6.3-8.2 2412022312) ALBUMIN (test code = 5.0 g/dL 3.5-5.0 4746618819) ALK PHOS (test code = 67 U/L 34-122 2666192221) ALTv (test code = 26 U/L 5-50 2-6) AST(SGOT) (test code = 26 U/L 13-40 1597473649) eGFR (test code = mL/min/1.73m2 8451294706) CHAN (test code = CHAN) Association of Glomerular Filtration Rate (GFR) and Staging of Kidney Disease* + --+ --+ ------+| GFR (mL/min/1.73 m2) ?| With Kidney Damage ?| ?Without Kidney Damage+ --------+ --------+ +| ?>90 ?| ?Stage one ?| ? Normal ?+ ---+ ---+ -------+| ?60-89 ?| ?Stage two ?| ? Decreased GFR ? + --+ --+ ------+| ?30-59 ?| ?Stage three ?| ? Stage three ? + --+ --+ ------+| ?15-29 ?| ?Stage four ? | ? Stage four ?+ ---+ ---+ -------+| ?<15 (or dialysis) ? ?| ?Stage five ? | ? Stage five ?+ ---+ ---+ -------+ *Each stage assumes the associated GFR level has been in effect for at least three months. ?Stages 1 to 5, with or without kidney disease, indicate chronic kidney disease. Notes: Determination of stages one and two (with eGFR >59mL/min/1.73 m2) requires estimation of kidney damage for at least three months as defined by structural or functional abnormalities of the kidney, manifested by either:Pathological abnormalities or Markers of kidney damage (including abnormalities in the composition of the blood or urine or abnormalities in imaging tests). Lab Interpretation Abnormal (test code = 24485-1) [facility], [id number] 10:46:03 Test Item Value Reference Range Interpretation Comments LIPASE (test code = 7980202312) 120 U/L 0-220 Lab Interpretation (test code = Normal 93720-2) [facility] [id number] 04:34:56 Test Item Value Reference Range Interpretation Comments GLUCOSE (test code = 87 MG/DL 70-99 2216) BUN (test code = 14 MG/DL 6-20 2207) CREATININE (test 0.98 MG/DL 0.80-1.40 code = 221) eGFR (2020 CKD-EPI) 110 >60 (test code = 84855) ML/MIN/1.73 CALC BUN/CREAT (test 14 RATIO 6-28 code = 2235) SODIUM (test code = 142 MEQ/L 722-537 5561) POTASSIUM (test code 4.0 MEQ/L 3.5-5.4 = 2227) CHLORIDE (test code 102 MEQ/L 95-107 = 2214) CARBON DIOXIDE (test 29 MEQ/L 19-31 code = 2205) CALCIUM (test code = 9.3 MG/DL 8.5-10.5 2208) PROTEIN, TOTAL (test 7.1 G/DL 6.1-8.3 code = 2228) ALBUMIN (test code = 4.8 G/DL 3.5-5.2 2200) CALC GLOBULIN (test 2.3 G/DL 1.9-3.7 code = 2239) CALC A/G RATIO (test 2.1 RATIO 1.0-2.6 code = 2233) BILIRUBIN, TOTAL 1.0 MG/DL See_Comment [Automated message] (test code = 2206) The syste m which generated this result transmit ana reference range : <=1.2. The refe rence range was not u sed to interpret th is result as normal/abnormal . ALKALINE PHOSPHATASE 56 U/L 40-118 (test code = 2203) AST (test code = 18 U/L 9-50 2217) ALT (test code = 27 U/L 5-50 2218) LIPID [id number] 04:34:56 Test Item Value Reference Range Interpretation Comments CHOLESTEROL (test 155 MG/DL <200 code = 2210) TRIGLYCERIDES (test 101 MG/DL <150 code = 2232) HDL CHOLESTEROL (test 34 MG/DL >39 L code = 222) CALC LDL CHOL (test 102 MG/DL <100 H NOTE: C ALCULATED LDL code = 2237) IS BASED ON PORTIA-POLLY METHOD WHICHINCLUDES ADJUSTABLE TRIGLYCERIDE:VL DL CHOLESTEROL RAT IO.THIS FACTOR VARIES B Y MEASURED TRIGLY CERIDE AND NON-HDLCHOL ESTEROL CONCENTRATIONS WITH INCREASED CALCU LATED LDL SEENIN HIGH ER TRIGLYCERIDE OR LOWER NON-HDL SPECIME NS. FOR MOREINFORMATION , SEE CLIENT ANNOUNCE MENT AT [email or web address] RISK RATIO LDL/HDL 3.00 RATIO <3.55 UNLESS O THERWISE (test code = 2238) INDICATED , ALL TESTING PERFORMED [facility], [facility]. [address] [place] [address] [facility] ART DIRECTOR: Parminder TERRELLIA NUMBER [id number] CAP ACCREDITATION N O. [id number] COMPREHENSIVE METABOLIC [id number] 00:00:00 Test Item Value Reference Range Interpretation Comments GLUCOSE (test code = 2217) 87 MG/DL BUN (test code = 2208) 14 MG/DL CREATININE (test code = 2214) 0.98 MG/DL eGFR (2020 CKD-EPI) (test 110 ML/MIN/1.73 code = 65256) CALC BUN/CREAT (test code = 14 RATIO 2234) SODIUM (test code = 2231) 142 MEQ/L POTASSIUM (test code = 2228) 4.0 MEQ/L CHLORIDE (test code = 2215) 102 MEQ/L CARBON DIOXIDE (test code = 29 MEQ/L 2205) CALCIUM (test code = 2209) 9.3 MG/DL PROTEIN, TOTAL (test code = 7.1 G/DL 2228) ALBUMIN (test code = 2201) 4.8 G/DL CALC GLOBULIN (test code = 2.3 G/DL 2240) CALC A/G RATIO (test code = 2.1 RATIO 2233) BILIRUBIN, TOTAL (test code = 1.0 MG/DL 2206) ALKALINE PHOSPHATASE (test 56 U/L code = 2204) AST (test code = 2218) 18 U/L ALT (test code = 2219) 27 U/L COMPREHENSIVE METABOLIC [id number] 00:00:00 Test Item Value Reference Range Interpretation Comments GLUCOSE (test code = 2217) 87 MG/DL BUN (test code = 2208) 14 MG/DL CREATININE (test code = 2214) 0.98 MG/DL eGFR (2020 CKD-EPI) (test 110 ML/MIN/1.73 code = 54648) CALC BUN/CREAT (test code = 14 RATIO 2235) SODIUM (test code = 2231) 142 MEQ/L POTASSIUM (test code = 2228) 4.0 MEQ/L CHLORIDE (test code = 2215) 102 MEQ/L CARBON DIOXIDE (test code = 29 MEQ/L 2205) CALCIUM (test code = 2209) 9.3 MG/DL PROTEIN, TOTAL (test code = 7.1 G/DL 2228) ALBUMIN (test code = 2201) 4.8 G/DL CALC GLOBULIN (test code = 2.3 G/DL 224) CALC A/G RATIO (test code = 2.1 RATIO 2234) BILIRUBIN, TOTAL (test code = 1.0 MG/DL 2206) ALKALINE PHOSPHATASE (test 56 U/L code = 2204) AST (test code = 2218) 18 U/L ALT (test code = 2219) 27 U/L LIPID [id number] 00:00:00 Test Item Value Reference Range Interpretation Comments CHOLESTEROL (test code = 2210) 155 MG/DL TRIGLYCERIDES (test code = 2232) 101 MG/DL HDL CHOLESTEROL (test code = 2220) 34 MG/DL CALC LDL CHOL (test code = 2237) 102 MG/DL RISK RATIO LDL/HDL (test code = 3.00 RATIO 2238) LIPID [id number] 00:00:00 Test Item Value Reference Range Interpretation Comments CHOLESTEROL (test code = 2210) 155 MG/DL TRIGLYCERIDES (test code = 2232) 101 MG/DL HDL CHOLESTEROL (test code = 2220) 34 MG/DL CALC LDL CHOL (test code = 2237) 102 MG/DL RISK RATIO LDL/HDL (test code = 3.00 RATIO 2238) COMPREHENSIVE METABOLIC [id number] 00:00:00 Test Item Value Reference Range Interpretation Comments GLUCOSE (test code = 2217) 87 MG/DL BUN (test code = 2208) 14 MG/DL CREATININE (test code = 2214) 0.98 MG/DL eGFR (2020 CKD-EPI) (test 110 ML/MIN/1.73 code = 03169) CALC BUN/CREAT (test code = 14 RATIO 2235) SODIUM (test code = 2231) 142 MEQ/L POTASSIUM (test code = 2228) 4.0 MEQ/L CHLORIDE (test code = 2215) 102 MEQ/L CARBON DIOXIDE (test code = 29 MEQ/L 2206) CALCIUM (test code = 2209) 9.3 MG/DL PROTEIN, TOTAL (test code = 7.1 G/DL 2228) ALBUMIN (test code = 2201) 4.8 G/DL CALC GLOBULIN (test code = 2.3 G/DL 2240) CALC A/G RATIO (test code = 2.1 RATIO 2234) BILIRUBIN, TOTAL (test code = 1.0 MG/DL 2206) ALKALINE PHOSPHATASE (test 56 U/L code = 2204) AST (test code = 2218) 18 U/L ALT (test code = 2219) 27 U/L COMPREHENSIVE METABOLIC [id number] 00:00:00 Test Item Value Reference Range Interpretation Comments GLUCOSE (test code = 2217) 87 MG/DL BUN (test code = 2208) 14 MG/DL CREATININE (test code = 2214) 0.98 MG/DL eGFR (2020 CKD-EPI) (test 110 ML/MIN/1.73 code = 26175) CALC BUN/CREAT (test code = 14 RATIO 2235) SODIUM (test code = 2231) 142 MEQ/L POTASSIUM (test code = 2228) 4.0 MEQ/L CHLORIDE (test code = 2215) 102 MEQ/L CARBON DIOXIDE (test code = 29 MEQ/L 2205) CALCIUM (test code = 2209) 9.3 MG/DL PROTEIN, TOTAL (test code = 7.1 G/DL 2228) ALBUMIN (test code = 2201) 4.8 G/DL CALC GLOBULIN (test code = 2.3 G/DL 2240) CALC A/G RATIO (test code = 2.1 RATIO 2234) BILIRUBIN, TOTAL (test code = 1.0 MG/DL 2206) ALKALINE PHOSPHATASE (test 56 U/L code = 2204) AST (test code = 2218) 18 U/L ALT (test code = 2219) 27 U/L LIPID [id number] 00:00:00 Test Item Value Reference Range Interpretation Comments CHOLESTEROL (test code = 2210) 155 MG/DL TRIGLYCERIDES (test code = 2232) 101 MG/DL HDL CHOLESTEROL (test code = 2220) 34 MG/DL CALC LDL CHOL (test code = 2237) 102 MG/DL RISK RATIO LDL/HDL (test code = 3.00 RATIO 2238) LIPID [id number] 00:00:00 Test Item Value Reference Range Interpretation Comments CHOLESTEROL (test code = 2210) 155 MG/DL TRIGLYCERIDES (test code = 2232) 101 MG/DL HDL CHOLESTEROL (test code = 2220) 34 MG/DL CALC LDL CHOL (test code = 2237) 102 MG/DL RISK RATIO LDL/HDL (test code = 3.00 RATIO 2238) COMPREHENSIVE METABOLIC [id number] 00:00:00 Test Item Value Reference Range Interpretation Comments GLUCOSE (test code = 2217) 87 MG/DL BUN (test code = 2208) 14 MG/DL CREATININE (test code = 2214) 0.98 MG/DL eGFR (2020 CKD-EPI) (test 110 ML/MIN/1.73 code = 91423) CALC BUN/CREAT (test code = 14 RATIO 2235) SODIUM (test code = 2231) 142 MEQ/L POTASSIUM (test code = 2228) 4.0 MEQ/L CHLORIDE (test code = 2215) 102 MEQ/L CARBON DIOXIDE (test code = 29 MEQ/L 2205) CALCIUM (test code = 2209) 9.3 MG/DL PROTEIN, TOTAL (test code = 7.1 G/DL 2228) ALBUMIN (test code = 2201) 4.8 G/DL CALC GLOBULIN (test code = 2.3 G/DL 2240) CALC A/G RATIO (test code = 2.1 RATIO 2234) BILIRUBIN, TOTAL (test code = 1.0 MG/DL 220) ALKALINE PHOSPHATASE (test 56 U/L code = 2204) AST (test code = 2218) 18 U/L ALT (test code = 2219) 27 U/L COMPREHENSIVE METABOLIC [id number] 00:00:00 Test Item Value Reference Range Interpretation Comments GLUCOSE (test code = 2217) 87 MG/DL BUN (test code = 2208) 14 MG/DL CREATININE (test code = 2214) 0.98 MG/DL eGFR (2020 CKD-EPI) (test 110 ML/MIN/1.73 code = 34447) CALC BUN/CREAT (test code = 14 RATIO 2235) SODIUM (test code = 2231) 142 MEQ/L POTASSIUM (test code = 2228) 4.0 MEQ/L CHLORIDE (test code = 2215) 102 MEQ/L CARBON DIOXIDE (test code = 29 MEQ/L 2205) CALCIUM (test code = 2209) 9.3 MG/DL PROTEIN, TOTAL (test code = 7.1 G/DL 2228) ALBUMIN (test code = 2201) 4.8 G/DL CALC GLOBULIN (test code = 2.3 G/DL 2239) CALC A/G RATIO (test code = 2.1 RATIO 2234) BILIRUBIN, TOTAL (test code = 1.0 MG/DL 2206) ALKALINE PHOSPHATASE (test 56 U/L code = 2204) AST (test code = 2218) 18 U/L ALT (test code = 2219) 27 U/L LIPID [id number] 00:00:00 Test Item Value Reference Range Interpretation Comments CHOLESTEROL (test code = 2210) 155 MG/DL TRIGLYCERIDES (test code = 2232) 101 MG/DL HDL CHOLESTEROL (test code = 2220) 34 MG/DL CALC LDL CHOL (test code = 2237) 102 MG/DL RISK RATIO LDL/HDL (test code = 3.00 RATIO 2238) LIPID [id number] 00:00:00 Test Item Value Reference Range Interpretation Comments CHOLESTEROL (test code = 2210) 155 MG/DL TRIGLYCERIDES (test code = 2232) 101 MG/DL HDL CHOLESTEROL (test code = 2220) 34 MG/DL CALC LDL CHOL (test code = 2237) 102 MG/DL RISK RATIO LDL/HDL (test code = 3.00 RATIO 2238) LIPID [id number] 00:00:00 Test Item Value Reference Range Interpretation Comments CHOLESTEROL (test code = 2210) 164 MG/DL TRIGLYCERIDES (test code = 2232) 60 MG/DL HDL CHOLESTEROL (test code = 2220) 44 MG/DL CALC LDL CHOL (test code = 2237) 105 MG/DL RISK RATIO LDL/HDL (test code = 2.39 RATIO 2238) COMPREHENSIVE METABOLIC [id number] 00:00:00 Test Item Value Reference Range Interpretation Comments GLUCOSE (test code = 2217) 98 MG/DL BUN (test code = 2208) 11 MG/DL CREATININE (test code = 2214) 0.96 MG/DL eGFR AMER. (test code 128 ML/MIN/1.73 = 03164) eGFR NON- AMER. (test 110 ML/MIN/1.73 code = 75898) CALC BUN/CREAT (test code = 11 RATIO 2235) SODIUM (test code = 2231) 144 MEQ/L POTASSIUM (test code = 2228) 4.1 MEQ/L CHLORIDE (test code = 2215) 108 MEQ/L CARBON DIOXIDE (test code = 27 MEQ/L 2205) CALCIUM (test code = 2209) 9.2 MG/DL PROTEIN, TOTAL (test code = 6.8 G/DL 2228) ALBUMIN (test code = 2201) 4.5 G/DL CALC GLOBULIN (test code = 2.3 G/DL 224) CALC A/G RATIO (test code = 2.0 RATIO 2234) BILIRUBIN, TOTAL (test code = 1.1 MG/DL 2206) ALKALINE PHOSPHATASE (test 55 U/L code = 2204) AST (test code = 2218) 15 U/L ALT (test code = 2219) 14 U/L LIPID [id number] 00:00:00 Test Item Value Reference Range Interpretation Comments CHOLESTEROL (test code = 2210) 164 MG/DL TRIGLYCERIDES (test code = 2232) 60 MG/DL HDL CHOLESTEROL (test code = 2220) 44 MG/DL CALC LDL CHOL (test code = 2237) 105 MG/DL RISK RATIO LDL/HDL (test code = 2.39 RATIO 2238) LIPID [id number] 00:00:00 Test Item Value Reference Range Interpretation Comments CHOLESTEROL (test code = 2210) 164 MG/DL TRIGLYCERIDES (test code = 2232) 60 MG/DL HDL CHOLESTEROL (test code = 2220) 44 MG/DL CALC LDL CHOL (test code = 2237) 105 MG/DL RISK RATIO LDL/HDL (test code = 2.39 RATIO 2238) COMPREHENSIVE METABOLIC [id number] 00:00:00 Test Item Value Reference Range Interpretation Comments GLUCOSE (test code = 2217) 98 MG/DL BUN (test code = 2208) 11 MG/DL CREATININE (test code = 2214) 0.96 MG/DL eGFR AMER. (test code 128 ML/MIN/1.73 = 63245) eGFR NON- AMER. (test 110 ML/MIN/1.73 code = 27196) CALC BUN/CREAT (test code = 11 RATIO 2235) SODIUM (test code = 2231) 144 MEQ/L POTASSIUM (test code = 2228) 4.1 MEQ/L CHLORIDE (test code = 2215) 108 MEQ/L CARBON DIOXIDE (test code = 27 MEQ/L 220) CALCIUM (test code = 2209) 9.2 MG/DL PROTEIN, TOTAL (test code = 6.8 G/DL 2228) ALBUMIN (test code = 2201) 4.5 G/DL CALC GLOBULIN (test code = 2.3 G/DL 2240) CALC A/G RATIO (test code = 2.0 RATIO 2234) BILIRUBIN, TOTAL (test code = 1.1 MG/DL 2206) ALKALINE PHOSPHATASE (test 55 U/L code = 2204) AST (test code = 2218) 15 U/L ALT (test code = 2219) 14 U/L COMPREHENSIVE METABOLIC [id number] 00:00:00 Test Item Value Reference Range Interpretation Comments GLUCOSE (test code = 2217) 98 MG/DL BUN (test code = 2208) 11 MG/DL CREATININE (test code = 2214) 0.96 MG/DL eGFR AMER. (test code 128 ML/MIN/1.73 = 48188) eGFR NON- AMER. (test 110 ML/MIN/1.73 code = 61426) CALC BUN/CREAT (test code = 11 RATIO 2235) SODIUM (test code = 2231) 144 MEQ/L POTASSIUM (test code = 2228) 4.1 MEQ/L CHLORIDE (test code = 2215) 108 MEQ/L CARBON DIOXIDE (test code = 27 MEQ/L 2205) CALCIUM (test code = 2209) 9.2 MG/DL PROTEIN, TOTAL (test code = 6.8 G/DL 2228) ALBUMIN (test code = 2201) 4.5 G/DL CALC GLOBULIN (test code = 2.3 G/DL 2240) CALC A/G RATIO (test code = 2.0 RATIO 2234) BILIRUBIN, TOTAL (test code = 1.1 MG/DL 2206) ALKALINE PHOSPHATASE (test 55 U/L code = 2204) AST (test code = 2218) 15 U/L ALT (test code = 2219) 14 U/L LIPID [id number] 00:00:00 Test Item Value Reference Range Interpretation Comments CHOLESTEROL (test code = 2210) 164 MG/DL TRIGLYCERIDES (test code = 2232) 60 MG/DL HDL CHOLESTEROL (test code = 2220) 44 MG/DL CALC LDL CHOL (test code = 2237) 105 MG/DL RISK RATIO LDL/HDL (test code = 2.39 RATIO 2238) COMPREHENSIVE METABOLIC [id number] 00:00:00 Test Item Value Reference Range Interpretation Comments GLUCOSE (test code = 2217) 98 MG/DL BUN (test code = 2208) 11 MG/DL CREATININE (test code = 2214) 0.96 MG/DL eGFR AMER. (test code 128 ML/MIN/1.73 = 27061) eGFR NON- AMER. (test 110 ML/MIN/1.73 code = 21701) CALC BUN/CREAT (test code = 11 RATIO 2235) SODIUM (test code = 2231) 144 MEQ/L POTASSIUM (test code = 2228) 4.1 MEQ/L CHLORIDE (test code = 2215) 108 MEQ/L CARBON DIOXIDE (test code = 27 MEQ/L 2205) CALCIUM (test code = 2209) 9.2 MG/DL PROTEIN, TOTAL (test code = 6.8 G/DL 2228) ALBUMIN (test code = 2201) 4.5 G/DL CALC GLOBULIN (test code = 2.3 G/DL 0) CALC A/G RATIO (test code = 2.0 RATIO 4) BILIRUBIN, TOTAL (test code = 1.1 MG/DL 2206) ALKALINE PHOSPHATASE (test 55 U/L code = 2204) AST (test code = 2218) 15 U/L ALT (test code = 2219) 14 U/L LIPID [id number] 00:00:00 Test Item Value Reference Range Interpretation Comments CHOLESTEROL (test code = 2210) 164 MG/DL TRIGLYCERIDES (test code = 2232) 60 MG/DL HDL CHOLESTEROL (test code = 2220) 44 MG/DL CALC LDL CHOL (test code = 2237) 105 MG/DL RISK RATIO LDL/HDL (test code = 2.39 RATIO 2238) LIPID [id number] 00:00:00 Test Item Value Reference Range Interpretation Comments CHOLESTEROL (test code = 2210) 164 MG/DL TRIGLYCERIDES (test code = 2232) 60 MG/DL HDL CHOLESTEROL (test code = 2220) 44 MG/DL CALC LDL CHOL (test code = 2237) 105 MG/DL RISK RATIO LDL/HDL (test code = 2.39 RATIO 2238) COMPREHENSIVE METABOLIC [id number] 00:00:00 Test Item Value Reference Range Interpretation Comments GLUCOSE (test code = 2217) 98 MG/DL BUN (test code = 2208) 11 MG/DL CREATININE (test code = 2214) 0.96 MG/DL eGFR AMER. (test code 128 ML/MIN/1.73 = 86684) eGFR NON- AMER. (test 110 ML/MIN/1.73 code = 87393) CALC BUN/CREAT (test code = 11 RATIO 2235) SODIUM (test code = 2231) 144 MEQ/L POTASSIUM (test code = 2228) 4.1 MEQ/L CHLORIDE (test code = 2215) 108 MEQ/L CARBON DIOXIDE (test code = 27 MEQ/L 2205) CALCIUM (test code = 2209) 9.2 MG/DL PROTEIN, TOTAL (test code = 6.8 G/DL 2228) ALBUMIN (test code = 2201) 4.5 G/DL CALC GLOBULIN (test code = 2.3 G/DL 0) CALC A/G RATIO (test code = 2.0 RATIO 2234) BILIRUBIN, TOTAL (test code = 1.1 MG/DL 2206) ALKALINE PHOSPHATASE (test 55 U/L code = 2204) AST (test code = 2218) 15 U/L ALT (test code = 2219) 14 U/L COMPREHENSIVE METABOLIC [id number] 00:00:00 Test Item Value Reference Range Interpretation Comments GLUCOSE (test code = 2217) 98 MG/DL BUN (test code = 2208) 11 MG/DL CREATININE (test code = 2214) 0.96 MG/DL eGFR AMER. (test code 128 ML/MIN/1.73 = 57669) eGFR NON- AMER. (test 110 ML/MIN/1.73 code = 30961) CALC BUN/CREAT (test code = 11 RATIO 2235) SODIUM (test code = 2231) 144 MEQ/L POTASSIUM (test code = 2228) 4.1 MEQ/L CHLORIDE (test code = 2215) 108 MEQ/L CARBON DIOXIDE (test code = 27 MEQ/L 220) CALCIUM (test code = 2209) 9.2 MG/DL PROTEIN, TOTAL (test code = 6.8 G/DL 2228) ALBUMIN (test code = 2201) 4.5 G/DL CALC GLOBULIN (test code = 2.3 G/DL 2240) CALC A/G RATIO (test code = 2.0 RATIO 2234) BILIRUBIN, TOTAL (test code = 1.1 MG/DL 2206) ALKALINE PHOSPHATASE (test 55 U/L code = 2204) AST (test code = 2218) 15 U/L ALT (test code = 2219) 14 U/L LIPID [id number] 00:00:00 Test Item Value Reference Range Interpretation Comments CHOLESTEROL (test code = 2210) 164 MG/DL TRIGLYCERIDES (test code = 2232) 60 MG/DL HDL CHOLESTEROL (test code = 2220) 44 MG/DL CALC LDL CHOL (test code = 2237) 105 MG/DL RISK RATIO LDL/HDL (test code = 2.39 RATIO 2238) LIPID [id number] 00:00:00 Test Item Value Reference Range Interpretation Comments CHOLESTEROL (test code = 2210) 164 MG/DL TRIGLYCERIDES (test code = 2232) 60 MG/DL HDL CHOLESTEROL (test code = 2220) 44 MG/DL CALC LDL CHOL (test code = 2237) 105 MG/DL RISK RATIO LDL/HDL (test code = 2.39 RATIO 2238) COMPREHENSIVE METABOLIC [id number] 00:00:00 Test Item Value Reference Range Interpretation Comments GLUCOSE (test code = 2217) 98 MG/DL BUN (test code = 2208) 11 MG/DL CREATININE (test code = 2214) 0.96 MG/DL eGFR AMER. (test code 128 ML/MIN/1.73 = 02729) eGFR NON- AMER. (test 110 ML/MIN/1.73 code = 67834) CALC BUN/CREAT (test code = 11 RATIO 2235) SODIUM (test code = 2231) 144 MEQ/L POTASSIUM (test code = 2228) 4.1 MEQ/L CHLORIDE (test code = 2215) 108 MEQ/L CARBON DIOXIDE (test code = 27 MEQ/L 2205) CALCIUM (test code = 2209) 9.2 MG/DL PROTEIN, TOTAL (test code = 6.8 G/DL 2228) ALBUMIN (test code = 2201) 4.5 G/DL CALC GLOBULIN (test code = 2.3 G/DL 2240) CALC A/G RATIO (test code = 2.0 RATIO 2234) BILIRUBIN, TOTAL (test code = 1.1 MG/DL 2207) ALKALINE PHOSPHATASE (test 55 U/L code = 2204) AST (test code = 2218) 15 U/L ALT (test code = 2219) 14 U/L COMPREHENSIVE METABOLIC [id number] 00:00:00 Test Item Value Reference Range Interpretation Comments GLUCOSE (test code = 2217) 98 MG/DL BUN (test code = 2208) 11 MG/DL CREATININE (test code = 2214) 0.96 MG/DL eGFR AMER. (test code 128 ML/MIN/1.73 = 87407) eGFR NON- AMER. (test 110 ML/MIN/1.73 code = 20183) CALC BUN/CREAT (test code = 11 RATIO 2235) SODIUM (test code = 2231) 144 MEQ/L POTASSIUM (test code = 2228) 4.1 MEQ/L CHLORIDE (test code = 2215) 108 MEQ/L CARBON DIOXIDE (test code = 27 MEQ/L 2205) CALCIUM (test code = 2209) 9.2 MG/DL PROTEIN, TOTAL (test code = 6.8 G/DL 2228) ALBUMIN (test code = 2201) 4.5 G/DL CALC GLOBULIN (test code = 2.3 G/DL 2240) CALC A/G RATIO (test code = 2.0 RATIO 2234) BILIRUBIN, TOTAL (test code = 1.1 MG/DL 2206) ALKALINE PHOSPHATASE (test 55 U/L code = 2204) AST (test code = 2218) 15 U/L ALT (test code = 2219) 14 U/L LIPID [id number] 00:00:00 Test Item Value Reference Range Interpretation Comments CHOLESTEROL (test code = 2210) 164 MG/DL TRIGLYCERIDES (test code = 2232) 60 MG/DL HDL CHOLESTEROL (test code = 2220) 44 MG/DL CALC LDL CHOL (test code = 2237) 105 MG/DL RISK RATIO LDL/HDL (test code = 2.39 RATIO 2238) COMPREHENSIVE METABOLIC [id number] 00:00:00 Test Item Value Reference Range Interpretation Comments GLUCOSE (test code = 2217) 98 MG/DL BUN (test code = 2208) 11 MG/DL CREATININE (test code = 2214) 0.96 MG/DL eGFR AMER. (test code 128 ML/MIN/1.73 = 06281) eGFR NON- AMER. (test 110 ML/MIN/1.73 code = 50219) CALC BUN/CREAT (test code = 11 RATIO 2235) SODIUM (test code = 2231) 144 MEQ/L POTASSIUM (test code = 2228) 4.1 MEQ/L CHLORIDE (test code = 2215) 108 MEQ/L CARBON DIOXIDE (test code = 27 MEQ/L 6) CALCIUM (test code = 2209) 9.2 MG/DL PROTEIN, TOTAL (test code = 6.8 G/DL 2228) ALBUMIN (test code = 2201) 4.5 G/DL CALC GLOBULIN (test code = 2.3 G/DL 2240) CALC A/G RATIO (test code = 2.0 RATIO 2233) BILIRUBIN, TOTAL (test code = 1.1 MG/DL 2206) ALKALINE PHOSPHATASE (test 55 U/L code = 2204) AST (test code = 2218) 15 U/L ALT (test code = 2219) 14 U/L LIPID PANEL (REFL)2020-03-17 00:00:00 Test Item Value Reference Range Interpretation Comments CHOLESTEROL, TOTAL (test code 142 mg/dL = 2093-3) HDL CHOLESTEROL (test code = 50 mg/dL 5-9) TRIGLYCERIDES (test code = 80 mg/dL 2571-8) LDL-CHOLESTEROL (test code = 76 mg/dL(calc) 94117-1) CHOL/HDLC RATIO (test code = 2.8 (calc) 9830-1) NON HDL CHOLESTEROL (test code 92 mg/dL(calc) = 69706-5) COMPREHENSIVE METABOLIC [id number] 00:00:00 Test Item Value Reference Range Interpretation Comments GLUCOSE (test code = 98 mg/dL 2345-7) UREA NITROGEN (BUN) 11 mg/dL (test code = 3094-0) CREATININE (test code = 0.83 mg/dL 2160-0) eGFR NON-AFR. PALAUAN 125 mL/min/1.73m2 (test code = 09515-9) eGFR 145 mL/min/1.73m2 (test code = 26588-2) BUN/CREATININE RATIO NOT APPLICABLE (calc) (test code = 3097-3) SODIUM (test code = 142 mmol/L 2951-2) POTASSIUM (test code = 4.0 mmol/L 2823-3) CHLORIDE (test code = 104 mmol/L 5-0) CARBON DIOXIDE (test 29 mmol/L code = 2027-9) CALCIUM (test code = 9.6 mg/dL 50842-3) PROTEIN, TOTAL (test 7.1 g/dL code = 2885-2) ALBUMIN (test code = 4.9 g/dL 1751-7) GLOBULIN (test code = 2.2 g/dL(calc) 28765-5) ALBUMIN/GLOBULIN RATIO 2.2 (calc) (test code = 1759-0) BILIRUBIN, TOTAL (test 1.1 mg/dL code = 1974-2) ALKALINE PHOSPHATASE 52 U/L (test code = 6768-6) AST (test code = 15 U/L 1920-8) ALT (test code = 12 U/L 1742-6) HEMOGLOBIN [id number] 00:00:00 Test Item Value Reference Range Interpretation Comments HEMOGLOBIN A1c (test code = 4.7 %[facility] 4548-4) LIPID PANEL (REFL)2020-03-17 00:00:00 Test Item Value Reference Range Interpretation Comments CHOLESTEROL, TOTAL (test code 142 mg/dL = 3-3) HDL CHOLESTEROL (test code = 50 mg/dL 2084-9) TRIGLYCERIDES (test code = 80 mg/dL 2570-8) LDL-CHOLESTEROL (test code = 76 mg/dL(calc) 63722-1) CHOL/HDLC RATIO (test code = 2.8 (calc) 9830-1) NON HDL CHOLESTEROL (test code 92 mg/dL(calc) = 38368-8) COMPREHENSIVE METABOLIC [id number] 00:00:00 Test Item Value Reference Range Interpretation Comments GLUCOSE (test code = 98 mg/dL 2345-7) UREA NITROGEN (BUN) 11 mg/dL (test code = 3094-0) CREATININE (test code = 0.83 mg/dL 2160-0) eGFR NON-AFR. PALAUAN 125 mL/min/1.73m2 (test code = 99816-9) eGFR 145 mL/min/1.73m2 (test code = 43775-4) BUN/CREATININE RATIO NOT APPLICABLE (calc) (test code = 3097-3) SODIUM (test code = 142 mmol/L 2951-2) POTASSIUM (test code = 4.0 mmol/L 2823-3) CHLORIDE (test code = 104 mmol/L 5-0) CARBON DIOXIDE (test 29 mmol/L code = 2027-9) CALCIUM (test code = 9.6 mg/dL 83361-6) PROTEIN, TOTAL (test 7.1 g/dL code = 2885-2) ALBUMIN (test code = 4.9 g/dL 1751-7) GLOBULIN (test code = 2.2 g/dL(calc) 77861-0) ALBUMIN/GLOBULIN RATIO 2.2 (calc) (test code = 1759-0) BILIRUBIN, TOTAL (test 1.1 mg/dL code = 1974-2) ALKALINE PHOSPHATASE 52 U/L (test code = 6768-6) AST (test code = 15 U/L 1920-8) ALT (test code = 12 U/L 1742-6) HEMOGLOBIN [id number] 00:00:00 Test Item Value Reference Range Interpretation Comments HEMOGLOBIN A1c (test code = 4.7 %[facility] 4548-4) LIPID PANEL (REFL)2020-03-17 00:00:00 Test Item Value Reference Range Interpretation Comments CHOLESTEROL, TOTAL (test code 142 mg/dL = 3-3) HDL CHOLESTEROL (test code = 50 mg/dL 2084-9) TRIGLYCERIDES (test code = 80 mg/dL 2571-8) LDL-CHOLESTEROL (test code = 76 mg/dL(calc) 56805-0) CHOL/HDLC RATIO (test code = 2.8 (calc) 9830-1) NON HDL CHOLESTEROL (test code 92 mg/dL(calc) = 59838-0) COMPREHENSIVE METABOLIC [id number] 00:00:00 Test Item Value Reference Range Interpretation Comments GLUCOSE (test code = 98 mg/dL 2345-7) UREA NITROGEN (BUN) 11 mg/dL (test code = 3094-0) CREATININE (test code = 0.83 mg/dL 2160-0) eGFR NON-AFR. PALAUAN 125 mL/min/1.73m2 (test code = 09566-8) eGFR 145 mL/min/1.73m2 (test code = 27362-2) BUN/CREATININE RATIO NOT APPLICABLE (calc) (test code = 3097-3) SODIUM (test code = 142 mmol/L 2951-2) POTASSIUM (test code = 4.0 mmol/L 2823-3) CHLORIDE (test code = 104 mmol/L 5-0) CARBON DIOXIDE (test 29 mmol/L code = 2027-9) CALCIUM (test code = 9.6 mg/dL 45948-1) PROTEIN, TOTAL (test 7.1 g/dL code = 2885-2) ALBUMIN (test code = 4.9 g/dL 1751-7) GLOBULIN (test code = 2.2 g/dL(calc) 39427-1) ALBUMIN/GLOBULIN RATIO 2.2 (calc) (test code = 1759-0) BILIRUBIN, TOTAL (test 1.1 mg/dL code = 1974-2) ALKALINE PHOSPHATASE 52 U/L (test code = 6768-6) AST (test code = 15 U/L 1920-8) ALT (test code = 12 U/L 1742-6) HEMOGLOBIN [id number] 00:00:00 Test Item Value Reference Range Interpretation Comments HEMOGLOBIN A1c (test code = 4.7 %[facility] 4548-4) LIPID PANEL (REFL)2020-03-17 00:00:00 Test Item Value Reference Range Interpretation Comments CHOLESTEROL, TOTAL (test code 142 mg/dL = 2093-3) HDL CHOLESTEROL (test code = 50 mg/dL 2084-9) TRIGLYCERIDES (test code = 80 mg/dL 2571-8) LDL-CHOLESTEROL (test code = 76 mg/dL(calc) 45261-9) CHOL/HDLC RATIO (test code = 2.8 (calc) 9830-1) NON HDL CHOLESTEROL (test code 92 mg/dL(calc) = 52728-5) COMPREHENSIVE METABOLIC [id number] 00:00:00 Test Item Value Reference Range Interpretation Comments GLUCOSE (test code = 98 mg/dL 2345-7) UREA NITROGEN (BUN) 11 mg/dL (test code = 3094-0) CREATININE (test code = 0.83 mg/dL 2160-0) eGFR NON-AFR. PALAUAN 125 mL/min/1.73m2 (test code = 05953-6) eGFR 145 mL/min/1.73m2 (test code = 02934-7) BUN/CREATININE RATIO NOT APPLICABLE (calc) (test code = 3097-3) SODIUM (test code = 142 mmol/L 2951-2) POTASSIUM (test code = 4.0 mmol/L 2823-3) CHLORIDE (test code = 104 mmol/L 5-0) CARBON DIOXIDE (test 29 mmol/L code = 2027-9) CALCIUM (test code = 9.6 mg/dL 13451-4) PROTEIN, TOTAL (test 7.1 g/dL code = 2885-2) ALBUMIN (test code = 4.9 g/dL 1751-7) GLOBULIN (test code = 2.2 g/dL(calc) 12664-4) ALBUMIN/GLOBULIN RATIO 2.2 (calc) (test code = 1759-0) BILIRUBIN, TOTAL (test 1.1 mg/dL code = 1974-2) ALKALINE PHOSPHATASE 52 U/L (test code = 6768-6) AST (test code = 15 U/L 1920-8) ALT (test code = 12 U/L 1742-6) HEMOGLOBIN [id number] 00:00:00 Test Item Value Reference Range Interpretation Comments HEMOGLOBIN A1c (test code = 4.7 %[facility] 4548-4) LIPID PANEL (REFL)2020-03-17 00:00:00 Test Item Value Reference Range Interpretation Comments CHOLESTEROL, TOTAL (test code 142 mg/dL = 3-3) HDL CHOLESTEROL (test code = 50 mg/dL 2084-9) TRIGLYCERIDES (test code = 80 mg/dL 2571-8) LDL-CHOLESTEROL (test code = 76 mg/dL(calc) 66520-4) CHOL/HDLC RATIO (test code = 2.8 (calc) 9830-1) NON HDL CHOLESTEROL (test code 92 mg/dL(calc) = 41965-4) COMPREHENSIVE METABOLIC [id number] 00:00:00 Test Item Value Reference Range Interpretation Comments GLUCOSE (test code = 98 mg/dL 2345-7) UREA NITROGEN (BUN) 11 mg/dL (test code = 3094-0) CREATININE (test code = 0.83 mg/dL 2160-0) eGFR NON-AFR. PALAUAN 125 mL/min/1.73m2 (test code = 15247-4) eGFR 145 mL/min/1.73m2 (test code = 79463-3) BUN/CREATININE RATIO NOT APPLICABLE (calc) (test code = 3097-3) SODIUM (test code = 142 mmol/L 2951-2) POTASSIUM (test code = 4.0 mmol/L 2823-3) CHLORIDE (test code = 104 mmol/L 2075-0) CARBON DIOXIDE (test 29 mmol/L code = 8-9) CALCIUM (test code = 9.6 mg/dL 87579-8) PROTEIN, TOTAL (test 7.1 g/dL code = 2885-2) ALBUMIN (test code = 4.9 g/dL 1751-7) GLOBULIN (test code = 2.2 g/dL(calc) 19172-4) ALBUMIN/GLOBULIN RATIO 2.2 (calc) (test code = 1759-0) BILIRUBIN, TOTAL (test 1.1 mg/dL code = 1975-2) ALKALINE PHOSPHATASE 52 U/L (test code = 6768-6) AST (test code = 15 U/L 1920-8) ALT (test code = 12 U/L 1742-6) HEMOGLOBIN [id number] 00:00:00 Test Item Value Reference Range Interpretation Comments H[facility]GLOB[facility]c ([facility] = 4.7 [facility] LIPID PANEL (REFL)2020-03-17 00:00:00 Test Item Value Reference Range Interpretation Comments CHOLESTEROL, TOTAL (test code 142 mg/dL = 2093-3) HDL CHOLESTEROL (test code = 50 mg/dL 2084-9) TRIGLYCERIDES (test code = 80 mg/dL 2571-8) LDL-CHOLESTEROL (test code = 76 mg/dL(calc) 16016-7) CHOL/HDLC RATIO (test code = 2.8 (calc) 9830-1) NON HDL CHOLESTEROL (test code 92 mg/dL(calc) = 83953-1) COMPREHENSIVE METABOLIC [id number] 00:00:00 Test Item Value Reference Range Interpretation Comments GLUCOSE (test code = 98 mg/dL 2345-7) UREA NITROGEN (BUN) 11 mg/dL (test code = 3094-0) CREATININE (test code = 0.83 mg/dL 2160-0) eGFR NON-AFR. PALAUAN 125 mL/min/1.73m2 (test code = 28461-7) eGFR 145 mL/min/1.73m2 (test code = 66658-3) BUN/CREATININE RATIO NOT APPLICABLE (calc) (test code = 3097-3) SODIUM (test code = 142 mmol/L 2951-2) POTASSIUM (test code = 4.0 mmol/L 2823-3) CHLORIDE (test code = 104 mmol/L 5-0) CARBON DIOXIDE (test 29 mmol/L code = 2027-9) CALCIUM (test code = 9.6 mg/dL 52890-3) PROTEIN, TOTAL (test 7.1 g/dL code = 2885-2) ALBUMIN (test code = 4.9 g/dL 1751-7) GLOBULIN (test code = 2.2 g/dL(calc) 21958-3) ALBUMIN/GLOBULIN RATIO 2.2 (calc) (test code = 1759-0) BILIRUBIN, TOTAL (test 1.1 mg/dL code = 1974-2) ALKALINE PHOSPHATASE 52 U/L (test code = 6768-6) AST (test code = 15 U/L 1920-8) ALT (test code = 12 U/L 1742-6) HEMOGLOBIN [id number] 00:00:00 Test Item Value Reference Range Interpretation Comments HEMOGLOBIN A1c (test code = 4.7 %[facility] 4548-4)"
[2022-09-07] MEDS ORDERED: MORPHINE 4 MG/ML SYR ONE (22:55)
[2022-09-07] MEDS ORDERED: ONDANSETRON 4 MG/2 ML VIAL ONE (22:55)
[2022-09-07 23:10] LABS: Urine Blood Trace-intact (Negative); Urine Glucose Negative (Negative); Urine Protein Negative (Negative); Urine pH 7.5 (5.0-7.0)
--- NOTE | 2022-09-07 23:26 | RAD REPORT ---
[facility]07/[facility] 11:07 pm CLINICAL HISTORY: left flank pain, possible stone COMPARISON: No comparisons TECHNIQUE: CT of the abdomen and pelvis was performed. All CT scans are performed using dose optimization technique as appropriate and may include automated exposure control or mA/KV adjustment according to patient size. FINDINGS: Lower chest: No acute abnormality. Liver: No acute abnormality or suspicious lesions. Biliary: No biliary ductal dilatation. Stomach: No significant focal abnormality. Duodenum: No significant focal abnormality. Pancreas: No significant abnormality. Spleen: No significant abnormality. Adrenal: No suspicious lesions. Kidney/ureter: Bilateral nephrolithiasis. Mild left-sided hydroureteronephrosis secondary to a 2 mm s tone left distal ureter. Retroperitoneum: No retroperitoneal adenopathy. Vascular: No aneurysm. Bowel: Normal appendix. Moderate stool.. Peritoneum: No ascites or free air. Bladder: Circumferential bladder wall thickening. Reproductive: No adnexal masses. Bones: No acute fracture. Other: n/a IMPRESSION: Mild left sided hydroureteronephrosis secondary to a 2 mm stone in the left distal urete r. Circumferential bladder wall thickening may reflect cystitis.
[2022-09-07 23:39] LABS: Absolute Lymphocytes (CBC) 2.2 K/uL (0.7-4.9); Hematocrit 44.6 % (39.6-49.0); Lymphocytes % 34.5 % (15.3-44.8); MCV 85.7 fL (80-100); MPV 8.1 fL (7.6-11.3)
[2022-09-07] MEDS ORDERED: KETOROLAC 30 MG/ML INJ ONE (23:56)
[2022-09-07] MEDS ORDERED: TAMSULOSIN 0.4 MG SR CAP ONE (23:56)
[2022-09-07] MEDS ORDERED: MAGNESIUM SULFATE 1 gm IVPB 1 GM/100 ML BAG IV ONE (23:56)
[2022-09-07 23:59] LABS: Urine Mucus Slight /HPF (None Seen)
[2022-09-08 00:07] LABS: Albumin 3.9 g/dL (3.4-5.0); Potassium 3.6 mmol/L (3.5-5.1); Protein, Total 6.9 g/dL (6.4-8.2)
--- NOTE | 2022-09-08 01:16 | ER ---
Nurse's Notes [facility] Name: Luis Felipe Sparks Age: 27 yrs Sex: Male : 1995 Arrival Date: 09/07/2022 Time: 22:42 Bed 19 Private MD: Diagnosis: Calculus of ureter Presentation: 09/07 22:44 Chief complaint: Patient states: I started having severe abdominal and lower back pain. kd3 I have been having slight pain in the bladder region for a while. It does burn to pee. I think it may be a stone. Coronavirus screen: Vaccine status: Patient reports receiving the 2nd dose of the covid vaccine. [employer]. Ebola Screen: No symptoms or risks identified at this time. Initial Sepsis Screen: Does the patient meet any 2 criteria? No. Patient's initial sepsis screen is negative. Does the patient have a suspected source of infection? No. Patient's initial sepsis screen is negative. Risk Assessment: Do you want to hurt yourself or someone else? Patient reports no desire to harm self or others. Onset of symptoms was September 07, 2022. 22:44 Method Of Arrival: Ambulatory kd3 22:44 Acuity: ESTHER 3 kd3 Triage Assessment: 22:47 General: Appears uncomfortable, Behavior is calm, cooperative. Pain: Complains of pain kd3 in right lower quadrant and left lower quadrant Pain radiates to left low back. Neuro: Level of Consciousness is awake, alert, obeys commands, Oriented to person, place, time, situation. Respiratory: Airway is patent Trachea midline Respiratory effort is even, unlabored, Respiratory pattern is regular, symmetrical. : Reports burning with urination, pain in suprapubic area flank(s). Historical: - Allergies: 22:47 No Known Allergies; kd3 - Home Meds: 22:47 Augmentin Oral [Active]; pantoprazole oral [Active]; kd3 - Immunization history:: Adult Immunizations up to date. - Social history:: Smoking status: Patient denies any tobacco usage or history of. - Family history:: not pertinent. - Hospitalizations: : No recent hospitalization is reported. Screenin:49 Abuse screen: Denies threats or abuse. Denies injuries from another. kd3 22:50 Nutritional screening: No deficits noted. Tuberculosis screening: No symptoms or risk kd3 factors identified. Fall Risk None identified. Assessment: 23:35 General: Appears uncomfortable, Behavior is calm, cooperative. Neuro: Level of kd3 Consciousness is awake, alert, obeys commands, Oriented to person, place, time, situation. Respiratory: Airway is patent Trachea midline Respiratory effort is even, unlabored, Respiratory pattern is regular, symmetrical. 09/08 00:54 Reassessment: Patient and/or family updated on plan of care and expected duration. Pain ll3 level reassessed. Patient is alert, oriented x 3, equal unlabored respirations, skin warm/dry/pink. Patient denies pain at this time. Patient states feeling better. Patient states symptoms have improved. Vital Signs: 09/07 22:44 BP 139 / 89; Pulse 19; Resp 67; Temp 98.0(O); Pulse Ox 98% on R/A; Weight 61.23 kg; kd3 Height 5 ft. 5 in. (165.10 cm); Pain 8/10; 22:49 Pulse 67; Resp 19; kd3 23:35 Pain 9/10; kd3 09/08 00:54 BP 120 / 79; Pulse 90; Resp 16; Pulse Ox 98% on R/A; ll3 09/07 22:44 Body Mass Index 22.46 (61.23 kg, 165.10 cm) kd3 ED Course: 09/07 22:42 Patient arrived in ED. ja2 22:47 Triage completed. kd3 22:47 Huy Hawkins MD is Attending Physician. rn 22:47 Arm band placed on left wrist. kd3 22:50 No provider procedures requiring assistance completed. kd3 23:04 Inserted saline lock: 20 gauge in right antecubital area, using aseptic technique. kd3 Blood collected. 23:09 CT Stone Protocol In Process Unspecified. EDMS 23:09 CBC with Diff Sent. kd3 23:09 CMP Sent. kd3 23:09 Lipase Sent. kd3 23:09 Urine Microscopic Only Sent. kd3 09/08 00:07 Patient has correct armband on for positive identification. Bed in low position. Call ll3 light in reach. Side rails up X 1. Adult w/ patient. 00:54 Jason Centeno, PRADIP is Primary Nurse. ll3 01:22 IV discontinued, intact, bleeding controlled, No redness/swelling at site. Pressure ll3 dressing applied. Administered Medications: 09/07 23:03 Drug: Zofran (Ondansetron) 4 mg Route: IVP; Site: right antecubital; kd3 23:35 Follow up: Response: No adverse reaction kd3 23:03 Drug: morphine 4 mg Route: IVP; Infused Over: 4 mins; Site: right antecubital; kd3 23:35 Follow up: Response: No adverse reaction; Pain is unchanged, physician notified kd3 09/08 00:05 Drug: Magnesium Sulfate 1 grams Route: IVPB; Infused Over: 1 hrs; Site: right ll3 antecubital; 01:23 Follow up: Response: No adverse reaction; IV Status: Completed infusion; IV Intake: ll3 100ml 00:05 Drug: Flomax (tamsulosin) 0.4 mg Route: PO; ll3 01:23 Follow up: Response: No adverse reaction ll3 00:05 Drug: Ketorolac 30 mg Route: IVP; Site: right antecubital; ll3 01:23 Follow up: Response: No adverse reaction; Marked relief of symptoms; Pain is decreased ll3 Medication: 09/07 22:50 VIS not applicable for this client. kd3 Intake: 09/08 01:23 IV: 100ml; Total: 100ml. ll3 Outcome: 01:15 Discharge ordered by . rn 01:22 Discharged to home ambulatory, with family. ll3 01:22 Condition: stable 01:22 Discharge instructions given to patient, family, Instructed on discharge instructions, follow up and referral plans. medication usage, Demonstrated understanding of instructions, follow-up care, medications, Prescriptions given X 2. 01:23 Patient left the ED. ll3 Signatures: Dispatcher [employer] Huy Mcdaniel MD MD rn Alexander, Jessica ja2 Loubet, Lynsea RN RN ll3 Lara High RN RN kd3
--- NOTE | 2022-09-08 01:23 | EDPHYS ---
Physician Documentation [facility] Name: Luis Felipe Sparks Age: 27 yrs Sex: Male : 1995 Arrival Date: 09/07/2022 Time: 22:42 Bed 19 Private MD: ED Physician Huy Hawkins HPI: 09/08 01:08 This 27 yrs old Male presents to ER via Ambulatory with complaints of back pain. rn 01:08 The patient presents with pain that is acute, with no known mechanism of injury. The rn symptoms are located in the low back. The pain radiates to the abdomen. Onset: The symptoms/episode began/occurred just prior to arrival. Modifying factors: The patient symptoms are alleviated by nothing, the patient symptoms are aggravated by nothing. Associated signs and symptoms: Pertinent positives: abdominal pain, nausea, Pertinent negatives: chest pain, fever, hematuria. Severity of symptoms: At their worst the symptoms were moderate, in the emergency department the symptoms are unchanged. The patient has not experienced similar symptoms in the past. The patient has not recently seen a physician. Pt reports acute left flank pain, father with hx of stones, concerned that this might be a stone. NO fever. NO trauma. NO hematuria. . Historical: - Allergies: 09/07 22:47 No Known Allergies; kd3 - Home Meds: 22:47 Augmentin Oral [Active]; pantoprazole oral [Active]; kd3 - Immunization history:: Adult Immunizations up to date. - Social history:: Smoking status: Patient denies any tobacco usage or history of. - Family history:: not pertinent. - Hospitalizations: : No recent hospitalization is reported. ROS: 09/08 01:08 Constitutional: Negative for fever, chills, and weight loss, Eyes: Negative for injury, rn pain, redness, and discharge, Cardiovascular: Negative for chest pain, palpitations, and edema, Respiratory: Negative for shortness of breath, cough, wheezing, and pleuritic chest pain, Abdomen/GI: Negative for diarrhea, and constipation Back: Negative for injury MS/Extremity: Negative for injury and deformity, Skin: Negative for injury, rash, and discoloration, Neuro: Negative for headache, weakness, numbness, tingling, and seizure. Exam: 01:08 Constitutional: This is a well developed, well nourished patient who is awake, alert, rn appears uncomfortable Head/Face: Normocephalic, atraumatic. Cardiovascular: Regular rate and rhythm. No pulse deficits. Respiratory: No increased work of breathing, no retractions or nasal flaring. Abdomen/GI: Soft, non-tender Back: No spinal tenderness. No costovertebral tenderness. Full range of motion. Skin: Warm, dry MS/ Extremity: Pulses equal, no cyanosis. Neuro: Awake and alert, GCS 15 Vital Signs: 09/07 22:44 BP 139 / 89; Pulse 19; Resp 67; Temp 98.0(O); Pulse Ox 98% on R/A; Weight 61.23 kg; kd3 Height 5 ft. 5 in. (165.10 cm); Pain 8/10; 22:49 Pulse 67; Resp 19; kd3 23:35 Pain 9/10; kd3 09/08 00:54 BP 120 / 79; Pulse 90; Resp 16; Pulse Ox 98% on R/A; ll3 09/07 22:44 Body Mass Index 22.46 (61.23 kg, 165.10 cm) kd3 MDM: 09/07 22:52 Patient medically screened. rn 09/08 01:12 Differential diagnosis: UTI, kidney stone. Data reviewed: vital signs, nurses notes, paid internship test result(s), radiologic studies, CT scan, and as a result, I will discharge patient. Counseling: I had a detailed discussion with the patient and/or guardian regarding: the historical points, exam findings, and any diagnostic results supporting the discharge/admit diagnosis, lab results, radiology results, the need for outpatient follow up, to return to the emergency department if symptoms worsen or persist or if there are any questions or concerns that arise at home. Response to treatment: the patient's symptoms have markedly improved after treatment, the patient's symptoms have resolved after treatment, and as a result, I will discharge patient. Special discussion: I discussed with the patient/guardian in detail that at this point there is no indication for admission to the hospital. It is understood, however, that if the symptoms persist or worsen the patient needs to return immediately for re-evaluation. Based on the history and exam findings, there is no indication for further emergent testing or inpatient evaluation. I discussed with the patient/guardian the need to see the primary care provider for further evaluation of the symptoms. I discussed with the patient/guardian the need to see the urologist for further evaluation of the symptoms. ED course: Pain resolved, sitting comfortably, 2mm stone distal left ureter, may have passed into bladder. Will dc home with prn pain meds and zofran with return precautions. . 09/07 22:53 Order name: CBC with Diff; Complete Time: 23:44 rn 09/07 22:53 Order name: CMP; Complete Time: 00:43 rn 09/07 22:53 Order name: Lipase; Complete Time: 00:43 rn 09/07 22:53 Order name: Urine Microscopic Only; Complete Time: 00:43 rn 09/07 22:53 Order name: CT Stone Protocol; Complete Time: 23:35 rn 09/07 23:10 Order name: Urine Dipstick-Ancillary; Complete Time: 23:35 EDMS 09/07 22:53 Order name: IV Saline Lock; Complete Time: 23:03 rn 09/07 22:53 Order name: Labs collected and sent; Complete Time: 23:03 rn 09/07 22:53 Order name: Urine Dipstick-Ancillary (obtain specimen); Complete Time: 23:09 rn Administered Medications: 09/07 23:03 Drug: Zofran (Ondansetron) 4 mg Route: IVP; Site: right antecubital; kd3 23:35 Follow up: Response: No adverse reaction kd3 23:03 Drug: morphine 4 mg Route: IVP; Infused Over: 4 mins; Site: right antecubital; kd3 23:35 Follow up: Response: No adverse reaction; Pain is unchanged, physician notified kd3 09/08 00:05 Drug: Magnesium Sulfate 1 grams Route: IVPB; Infused Over: 1 hrs; Site: right ll3 antecubital; 01:23 Follow up: Response: No adverse reaction; IV Status: Completed infusion; IV Intake: ll3 100ml 00:05 Drug: Flomax (tamsulosin) 0.4 mg Route: PO; ll3 01:23 Follow up: Response: No adverse reaction ll3 00:05 Drug: Ketorolac 30 mg Route: IVP; Site: right antecubital; 3 01:23 Follow up: Response: No adverse reaction; Marked relief of symptoms; Pain is decreased ll3 Disposition Summary: 09/08/22 01:15 Discharge Ordered Location: Home rn Problem: new rn Symptoms: have improved rn Condition: Stable rn Diagnosis - Calculus of ureter rn Followup: rn - With: Private Physician - When: As needed - Reason: Recheck today's complaints, Re-evaluation by your physician Discharge Instructions: - Discharge Summary Sheet rn - Kidney Stones rn - Renal Colic rn - Dietary Guidelines to Help Prevent Kidney Stones rn Forms: - Medication Reconciliation Form rn - Thank You Letter rn - 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
[2022-09-08 02:04] VITALS: TEMP 98; O2SAT 98
[2022-09-08 02:07] VITALS: BP 120/79
== END 2022-09-08 01:23 | disposition home or self-care (01) ==
LOC: ER 22:38
DX: N20.1 Calculus of ureter (principal)
CPT/HCPCS: 96365; 85025; 36415; 83690; 80053; 76377; 74176; 96375; 99284; J3475; J2405; 81003; 81015